=== PATIENT | female | born 1990 | race African-American/Black ===

== ENCOUNTER 2021-01-19 16:52 | Emergency (ER) | payer MEDICAID ==
[~2021-01-19] VITALS: Ht 165.1 cm; Wt 94.0 kg
[2021-01-19] MEDS ORDERED: HYDROMORPHONE HCL/PF 2MG/ML CPJ IV ONE ×2 (17:30→19:15)
[2021-01-19 18:02] LABS: BASOPHILS % 1.1 % (0.0-2.0); EOSINOPHILS % 1.6 % (0.0-5.0); HEMATOCRIT. 41.3 % (36.0-48.0); HEMOGLOBIN. 13.9 g/dL (12.0-16.0); LYMPHOCYTES % 28.9 % (20.0-50.0); MEAN CORPUSCULAR HEMOGLOBIN 30.4 pg (28.0-32.0); MEAN CORPUSCULAR VOLUME 90.7 fL (81.0-99.0); MEAN PLATELET VOLUME 8.4 fl (7.4-10.4); MONOCYTES % 7.6 % (2.0-8.0); NEUTROPHILS % 60.8 % (40.0-76.0); PLATELET 397 x1000/uL (130-400); RED BLOOD CELL COUNT 4.56 mill/uL (4.2-5.4); RED CELL DISTRIBUTION WIDTH 13.9 % (11.6-14.6)
[2021-01-19 18:09] LABS: CHLORIDE 108 mEq/L (98-107)
[2021-01-19 18:10] LABS: HCG SCREEN NEGATIVE
[2021-01-19 19:27] VITALS: BP 122/91
== END 2021-01-19 20:01 | disposition home or self-care (01) ==
LOC: ER 16:52
DX: R10.2 Pelvic and perineal pain (principal); D17.1 Benign lipomatous neoplasm of skin and subcutaneous tissue of trunk; Z98.890 Other specified postprocedural states
CPT/HCPCS: 36415; 76830; 76856; 80048; 84703; 85025; 86850; 86900; 86901; 96374; 96376; 99284; J1170

== ENCOUNTER 2021-02-07 21:07 | Emergency (ER) | payer MEDICAID ==
[~2021-02-07] VITALS: Ht 165.1 cm; Wt 95.0 kg
[2021-02-07] MEDS ORDERED: KETOROLAC 30MG/ML VIAL IV STA (22:27)
[2021-02-07] MEDS ORDERED: ONDANSETRON HCL 4MG/2ML INJ IV STA (22:27)
[2021-02-07] MEDS ORDERED: LIDOCAINE 5% PATCH TOP SCH (22:30)
[2021-02-07 23:07] LABS: BASOPHILS % 0.7 % (0.0-2.0); EOSINOPHILS % 0.7 % (0.0-5.0); HEMATOCRIT. 39.9 % (36.0-48.0); HEMOGLOBIN. 13.7 g/dL (12.0-16.0); LYMPHOCYTES % 21.1 % (20.0-50.0); MEAN CORPUSCULAR HEMOGLOBIN 31.2 pg (28.0-32.0); MEAN CORPUSCULAR VOLUME 90.8 fL (81.0-99.0); MEAN PLATELET VOLUME 8.2 fl (7.4-10.4); NEUTROPHILS % 70.5 % (40.0-76.0); PLATELET 330 x1000/uL (130-400); RED BLOOD CELL COUNT 4.39 mill/uL (4.2-5.4); RED CELL DISTRIBUTION WIDTH 14.3 % (11.6-14.6)
[2021-02-07 23:13] LABS: CHLORIDE 111 mEq/L (98-107)
[2021-02-07 23:16] LABS: ETHANOL BLOOD < 10 mg/dL
[2021-02-07 23:33] VITALS: BP 116/82
[2021-02-07 23:46] LABS: CLARITY URINE CLEAR (CLEAR); COLOR URINE YELLOW (YELLOW); KETONES URINE NEGATIVE (NEGATIVE); LEUKOCYTE ESTERASE URINE NEGATIVE (NEGATIVE); NITRITE URINE NEGATIVE (NEGATIVE); OCCULT BLOOD URINE NEGATIVE (NEGATIVE); PH URINE 6.5 (4.5-8.0); PROTEIN URINE NEGATIVE (NEGATIVE); SPECIFIC GRAVITY URINE 1.011 (1.005-1.030); UROBILINOGEN URINE 0.2 E.U./dL (0.2-1.0)
[2021-02-07 23:53] LABS: *BARBITURATES SCREEN URINE NEGATIVE (NEGATIVE); *BENZODIAZEPINES SCREEN URINE NEGATIVE (NEGATIVE)
[2021-02-07 23:54] LABS: *AMPHETAMINES SCREEN URINE NEGATIVE (NEGATIVE); *COCAINE SCREEN URINE NEGATIVE (NEGATIVE); CANNABINOID URINE SCREEN NEGATIVE (NEGATIVE); METHADONE URINE SCREEN NEGATIVE (NEGATIVE); OPIATES URINE SCREEN NEGATIVE (NEGATIVE); PHENCYCLIDINE URINE SCREEN NEGATIVE (NEGATIVE)
[2021-02-08] MEDS ORDERED: HYDROCODONE/ACETAMINOPHEN 5/325MG TABLET PO NR
== END 2021-02-08 00:02 | disposition left against medical advice (07) ==
LOC: ER 21:07
DX: R10.31 Right lower quadrant pain (principal); M54.5 Low back pain; M25.511 Pain in right shoulder; F17.290 Nicotine dependence, other tobacco product, uncomplicated; J45.909 Unspecified asthma, uncomplicated; Z88.0 Allergy status to penicillin; Z98.890 Other specified postprocedural states
CPT/HCPCS: 36415; 71045; 72100; 72170; 73030; 80053; 80305; 80320; 81003; 81025; 83690; 85025; 96374; 96375; 99284; J1885; J2405; G0480

== ENCOUNTER 2021-03-10 12:34 | Emergency (ER) | payer MEDICAID ==
[~2021-03-10] VITALS: Ht 165.1 cm; Wt 92.0 kg
[2021-03-10] MEDS ORDERED: SODIUM CHLORIDE 0.9% 1,000 ML IV ONE (16:15)
[2021-03-10] MEDS ORDERED: KETOROLAC 30MG/ML VIAL IV ONE (16:15)
[2021-03-10 17:06] LABS: CLARITY URINE CLEAR (CLEAR); COLOR URINE YELLOW (YELLOW); KETONES URINE NEGATIVE (NEGATIVE); LEUKOCYTE ESTERASE URINE NEGATIVE (NEGATIVE); NITRITE URINE NEGATIVE (NEGATIVE); OCCULT BLOOD URINE NEGATIVE (NEGATIVE); PROTEIN URINE NEGATIVE (NEGATIVE); SPECIFIC GRAVITY URINE 1.021 (1.005-1.030)
[2021-03-10 18:43] LABS: BASOPHILS % 0.6 % (0.0-2.0); EOSINOPHILS % 2.5 % (0.0-5.0); LYMPHOCYTES % 27.1 % (20.0-50.0); MEAN CORPUSCULAR HEMOGLOBIN 30.8 pg (28.0-32.0); MEAN PLATELET VOLUME 9.8 fl (7.4-10.4); NEUTROPHILS % 62.8 % (40.0-76.0); PLATELET 220 x1000/uL (130-400); RED BLOOD CELL COUNT 4.21 mill/uL (4.2-5.4); RED CELL DISTRIBUTION WIDTH 13.8 % (11.6-14.6)
[2021-03-10] MEDS ORDERED: HYDROCODONE/ACETAMINOPHEN 5/325MG TABLET PO ONE (18:45)
[2021-03-10 18:46] LABS: CHLORIDE 108 mEq/L (98-107)
[2021-03-10 18:49] LABS: HCG SCREEN NEGATIVE
[2021-03-10 20:10] VITALS: BP 129/68
== END 2021-03-10 20:14 | disposition left against medical advice (07) ==
LOC: ER 12:34
DX: R10.31 Right lower quadrant pain (principal); Z76.5 Malingerer [conscious simulation]; J45.909 Unspecified asthma, uncomplicated; F17.290 Nicotine dependence, other tobacco product, uncomplicated; Z98.890 Other specified postprocedural states; Z88.0 Allergy status to penicillin
CPT/HCPCS: 36415; 76830; 76856; 80053; 81003; 83690; 84703; 85025; 86850; 86900; 86901; 96361; 96374; 99284; J1885; J7030; Z7610

== ENCOUNTER 2023-05-14 19:58 | Emergency (ER) | payer MEDICAID ==
[~2023-05-14] VITALS: Ht 165.1 cm; Wt 99.0 kg
[2023-05-14 20:48] VITALS: BP 118/72; PULSE 88; RESP 17; TEMP 98.5; O2SAT 100
[2023-05-14 21:46] LABS: CLARITY URINE CLEAR (CLEAR); COLOR URINE YELLOW (YELLOW); GLUCOSE URINE NEGATIVE (NEGATIVE); KETONES URINE NEGATIVE (NEGATIVE); LEUKOCYTE ESTERASE URINE NEGATIVE (NEGATIVE); NITRITE URINE NEGATIVE (NEGATIVE); OCCULT BLOOD URINE 2+ (NEGATIVE); PROTEIN URINE NEGATIVE (NEGATIVE)
[2023-05-14 22:00] LABS: WBC URINE 0-2 /hpf (0-2)
[2023-05-14 22:05] LABS: BACTERIA URINE TRACE; SQUAMOUS EPITHELIAL CELL URINE 1+ /lpf (RARE/1+)
[2023-05-14] MEDS ORDERED: ACETAMINOPHEN WITH CODEINE 300/30MG TABLET PO NR (22:11)
[2023-05-14] MEDS ORDERED: KETOROLAC 60MG/2ML VIAL IM NR (22:11)
[2023-05-14] MEDS ORDERED: BACITRACIN ZINC OINT UDPKT TOP ONE (23:00)
[2023-05-14] MEDS ORDERED: LIDOCAINE HCL/PF 1% 10 MG/ML 5ML VIAL INFIL ONE (23:00)
[2023-05-14] MEDS ORDERED: LIDOCAINE HCL/PF 1% 10 MG/ML 5ML VIAL INFIL NR (23:15)
[2023-05-14] MEDS ORDERED: BACITRACIN ZINC OINT UDPKT TOP NR (23:15)
[2023-05-15] MEDS ORDERED: HYDROCODONE/ACETAMINOPHEN 5/325MG TABLET PO NR (00:24)
[2023-05-15] MEDS ORDERED: DOXY100T28 MT ×3 (00:56→01:29)
[2023-05-15] MEDS ORDERED: NAPR-681 PO ×3 (00:56→01:29)
[2023-05-15] MEDS ORDERED: HYDR-4001 PO ×3 (00:56→01:29)
== END 2023-05-15 01:51 | disposition home or self-care (01) ==
LOC: ER 19:58
DX: S30.0XXA Contusion of lower back and pelvis, initial encounter (principal); J06.9 Acute upper respiratory infection, unspecified; J45.909 Unspecified asthma, uncomplicated; Z98.890 Other specified postprocedural states; L03.011 Cellulitis of right finger; W18.39XA Other fall on same level, initial encounter; Y93.89 Activity, other specified; Y92.89 Other specified places as the place of occurrence of the external cause; Y99.8 Other external cause status
CPT/HCPCS: 99284; 76830; 76856; 71045; 81003; 81025; 72100; J1885; J3490

== ENCOUNTER 2023-12-26 21:21 | Emergency (ER) | payer MEDICAID, OTHER ==
[~2023-12-26] VITALS: Ht 165.1 cm; Wt 105.0 kg
[~2023-12-26 21:21] MED LIST: DOXY100T28 MT; HYDR-4001 PO; NAPR-681 PO
[2023-12-26 21:25] VITALS: TEMP 98.3; O2SAT 98
[2023-12-26 21:59] LABS: CLARITY URINE CLEAR (CLEAR); COLOR URINE YELLOW (YELLOW); GLUCOSE URINE NEGATIVE (NEGATIVE); KETONES URINE NEGATIVE (NEGATIVE); LEUKOCYTE ESTERASE URINE TRACE (NEGATIVE); NITRITE URINE NEGATIVE (NEGATIVE); OCCULT BLOOD URINE 3+ (NEGATIVE); PROTEIN URINE NEGATIVE (NEGATIVE); SPECIFIC GRAVITY URINE 1.021 (1.005-1.030)
[2023-12-26 22:28] LABS: BACTERIA URINE TRACE; RBC URINE TNTC /hpf (0-2); SQUAMOUS EPITHELIAL CELL URINE FEW /lpf (RARE/1+)
[2023-12-26 23:18] LABS: HEMATOCRIT. 36.4 % (36.0-48.0); MEAN CORPUSCULAR HEMOGLOBIN 30.2 pg (28.0-32.0); MEAN CORPUSCULAR HGB CONC 33.1 g/dL (31.0-37.0); MEAN CORPUSCULAR VOLUME 91.4 fL (81.0-99.0); MEAN PLATELET VOLUME 7.8 fl (7.4-10.4); PLATELET 408 x1000/uL (130-400); RED BLOOD CELL COUNT 3.98 mill/uL (4.2-5.4); WHITE BLOOD COUNT 10.2 x1000/uL (4.5-11.0)
[2023-12-26 23:19] LABS: DIFFERENTIAL COMMENT 1
[2023-12-26 23:24] LABS: CHLORIDE 107 mEq/L (98-107); POTASSIUM 4.1 mEq/L (3.5-5.1); SODIUM 138 mEq/L (136-145)
[2023-12-26 23:25] LABS: CALCIUM 9.4 mg/dL (8.7-10.4); CARBON DIOXIDE 25 mEq/L (21-32)
[2023-12-26 23:29] LABS: PLATELET ESTIMATE INCREASED
[2023-12-26 23:30] LABS: GLUCOSE 117 mg/dL (70-105)
[2023-12-26 23:31] LABS: UREA NITROGEN BLOOD 11 mg/dL (9-23)
[2023-12-26 23:32] LABS: ALANINE AMINOTRANSFERASE 14 IU/L (10-49); ALBUMIN 4.6 g/dL (3.2-4.8); ASPARTATE AMINOTRANSFERASE 16 IU/L (<34)
[2023-12-26 23:33] LABS: BILIRUBIN DIRECT 0.1 mg/dL (<=3.0); BILIRUBIN TOTAL 0.3 mg/dL (0.1-1.0); PROTEIN TOTAL 7.8 g/dL (6.0-8.3)
[2023-12-27] MEDS: SODIUM CHLORIDE 0.9% 1,000 ML IV ONE (01:11)
[2023-12-27] MEDS: DIPHENHYDRAMINE 50MG/ML VIAL IV ONE (02:14)
[2023-12-27] MEDS: ONDANSETRON HCL 4MG/2ML INJ IV STA (02:14)
[2023-12-27] MEDS: KETOROLAC 30MG/ML VIAL IV STA (02:14)
[2023-12-27] MEDS ORDERED: DIPH25CA83 MT (04:45)
[2023-12-27] MEDS ORDERED: P50 MT (04:45)
[2023-12-27] MEDS ORDERED: IBUP-2029 MT (04:46)
[2023-12-27] MEDS ORDERED: HYDR-4001 MT (05:00)
[2023-12-27] MEDS: ACETAMINOPHEN 500MG TABLET PO ONE (05:02)
[2023-12-27] MEDS: HYDROCODONE/ACETAMINOPHEN 5/325MG TABLET PO ONE (05:06)
[2023-12-27 05:19] VITALS: BP 126/77; PULSE 61; RESP 18
== END 2023-12-27 05:19 | disposition home or self-care (01) ==
LOC: ER 21:21
DX: T78.40XA Allergy, unspecified, initial encounter (principal); R10.2 Pelvic and perineal pain; J45.909 Unspecified asthma, uncomplicated; Z98.890 Other specified postprocedural states; Z79.899 Other long term (current) drug therapy; Z88.0 Allergy status to penicillin; X58.XXXA Exposure to other specified factors, initial encounter
CPT/HCPCS: 99285; 80076; 80048; 81003; 83690; 85025; 36415; 93005; 96374; 96361; 76830; 76856; 96375; 71045; J1200; J1885; J2405; J7030